=== PATIENT | male | born 1935 | race Caucasian/White ===

== ENCOUNTER 2016-05-06 21:21 | Inpatient (IN) | payer MEDICARE ==
--- NOTE | 2016-05-06 21:23 | ED Physician Chart ---
Chief Complaint/HPI - Patient Information Date Seen:: 05/06/16 Time Seen:: 21:22 Chief Complaint:: abdominal pain History of Present Illness:: 81-year-old male history of chronic pain using opiates, complains of acute, worsening, constant, severe, 10 out of 10 at worst, nonradiating, generalized abdominal pain 4 days. Has some associated slight nausea but no vomiting. Historian:: Patient, EMS Review:: Nurse's Note Reviewed, EMS run form Reviewed Review of Systems - Review of Systems Other: Complete system review otherwise unremarkable except as noted in HPI. Past Medical History - Past Medical History Past Medical History: HTN Family History: None Social History: Non Smoker, No Alcohol, No Drug Use, Single Surgical History: Appendectomy, Cholecystectomy Psychiatricy History: None Medication: Reviewed Family Medical History - Family Member Mother History Unknown: Yes Ethnicity: Non- Physical Exam - Physical Examination Other:: INITIAL VITAL SIGNS: Reviewed by me GENERAL: Alert and interactive. No acute distress HEAD: Head is normocephalic and atraumatic EYES: EOMI. . No scleral icterus. No conjunctival injection ENT: Moist mucous membranes. NECK: Supple. No masses. Full range of motion RESPIRATORY: No tachypnea. Clear breath sounds bilaterally. No wheezing, rales, or rhonchi CV: Regular rate and rhythm. No murmurs, rubs, or gallops ABDOMEN: Distended and generalized tenderness to palpation. No guarding. No rebound. No masses. EXTREMITIES: No deformity. No cyanosis. No edema. SKIN: Warm and dry. No obvious rashes. NEUROLOGIC: Alert and oriented. Face is symmetric. Speech is normal. Moves all extremities equally. Motor and sensory distally intact. Labs/Radiology/EKG Results - Radiology Results Results: CT abdomen and pelvis without contrast preliminary report per radiology Jejunal loops appear right-sided. Suspect small bowel rotation. There are mildly distended small bowel segments with air fluid levels. Although the terminal ileum is decompressed, no discrete transition point of insertion is suspected. Findings may represent ileus versus enteritis. Cholecystectomy. Suspect dilated cystic duct remnant. No evidence of acute pancreatitis. No urolithiasis or hydronephrosis. Diverticulosis without diverticulitis. Nonvisualized bodies Prostate seeding. Additional incidental findings include the density splenic lesion, relative atrophy of the right kidney, left adrenal hyperplasia, degenerative changes osseous structures with advanced arthritic changes of the hips and transitional lumbosacral right hemivertebrae. ED Septic Shock - . Is Septic Shock (SBP<90, OR Lactate>4 mmol\L) present?: No Reassessment (Disposition) - Reassessment Reassessment:: Patient has what appears to be large ileus. Most likely due to his opiate use. Gave Mayo and Nico here in the ER. Due to the intractable abdominal pain I discussed the case with the admitting physician. He'll admit the patient for further workup and treatment. Reassessment Condition:: Unchanged - Diagnosis Diagnosis:: Small bowel ileus Hypertension Chronic pain Chronic opioid use - Patient Disposition Discharge/Transfer:: Acute Care w/in this hosp Admitting Medical Physician:: Leland Saldaña Time:: 23:22 Condition at Disposition:: Stable ED Discharge Plan - Patient Disposition Admit/Discharge/Transfer: Acute Care w/in this hosp Instructions: Ileus
[2016-05-06] MEDS ORDERED: HYDROmorphone 1 mg/mL 1mL Syr IV ONE (21:25)
[2016-05-06] MEDS ORDERED: Sodium Chloride 0.9% 1,000 ML IV ONE (21:25)
[2016-05-06 21:54] LABS: % BASOPHILS 0.2 % (0.0-2.0); % EOSINOPHILS 0.2 % (0.0-5.0); % LYMPHOCYTES 11.7 % (20.0-50.0); % MONOCYTES 3.1 % (2.0-10.0); % NEUTROPHILS 84.8 % (40.0-80.0); HEMATOCRIT 44.8 % (39.0-49.0); HEMOGLOBIN 14.9 gm/dL (12.6-17.4); MEAN CELL VOLUME 93.3 fl (80-99); MEAN CORPUSCULAR HGB CONC 33.2 pg (28.0-36.0); MEAN PLATELET VOLUME 8.4 fl; NEUTROPHILE ABSOLUTE 7.1 Th/cmm (1.8-8.0); PLATELET COUNT 229 Th/cmm (150-400); RED CELL DISTRIBUTION WIDTH 11.9 % (11.5-20.0); WHITE BLOOD COUNT 8.4 Th/cmm (4.8-10.8)
[2016-05-06] MEDS ORDERED: HYDROmorphone 1 mg/mL 1mL Syr ONE (22:00)
[2016-05-06 22:06] LABS: ALB/GLOB RATIO 1.3 (1.0-1.8); ALKALINE PHOSPHATASE 55 U/L (34-104); AMYLASE SERUM 55 U/L (29-103); ANION GAP 15.2 (7.0-16.0); BILIRUBIN,TOTAL 1.4 mg/dL (0.3-1.0); BUN - UREA NITROGEN 19 mg/dL (7-25); BUN/CREATININE RATIO 15.8; CARBON DIOXIDE 22.9 mEq/L (21.0-31.0); CHLORIDE 101 mEq/L (98-107); CREATININE - SERUM 1.2 mg/dL (0.7-1.3); GLUCOSE 107 mg/dL (70-105); POTASSIUM SERUM 4.1 mEq/L (3.5-5.1); SGOT 19 U/L (13-39); SGPT/ALT 15 U/L (7-52); SODIUM SERUM 135 mEq/L (136-145)
[2016-05-06] MEDS ORDERED: Metoclopramide 5 mg/mL 2mL Vial IVP STA (23:10)
[2016-05-06] MEDS ORDERED: ERYTHROMYCIN 250 MG PO ONE ×2 (23:16→23:28)
[2016-05-06] MEDS ORDERED: Metoclopramide 5 mg/mL 2mL Vial ONE (23:28)
--- NOTE | 2016-05-06 23:34 | Admit Criteria Form ---
Admit Criteria Forms - Admit Criteria Diagnosis: ABDOMINAL PAIN Clinical Indications for Admission to Inpatient Care (Place 'X' for any and all applicable criteria): Admission is indicated for ANY ONE of the following(1)(2)(3)(4)(5): [X]I. Inpatient admission required rather than observation care (Also use Abdominal Pain: Observation Care, as appropriate) because of ANY ONE of the following: [X]a) Severe pain requiring acute inpatient management [X]b) Identification of etiology/finding that requires inpatient care (eg, aortic dissection, free air) [ ]c) Absent bowel sounds with complete ileus(6) [ ]d) Suspected toxic megacolon [ ]e) Severe electrolyte abnormalities requiring inpatient care [ ]f) High fever or infection requiring inpatient admission as indicated by ANY ONE of following(7)(8): [ ] i) Appropriate outpatient or observational care antimicrobial treatment unavailable, not effective, or not feasible [ ] ii) Documented bacteremia [ ] iii) Temperature > 104.9 degrees F (oral) [ ] iv) T >103.1 F (oral) or < 96.8 F(rectal) that does not respond to all emergency treatment measures [ ]g) Signs of intestinal obstruction [B] [ ]h) Hemodynamic instability [ ]i) IV fluid to replace significant ongoing losses (greater than 3 L/m2 per day) (12)(13) [ ]j) Percutaneous or open drainage (eg, abscess, biliary tract ) procedures [ ]k) Parenteral nutrition regimen that must be implemented on inpatient basis [ ]l) Other condition,treatment or monitoring requiring inpatient admission. [ ]II. Peritoneal signs present [ ]III. Surgery needed that cannot be performed on an ambulatory basis. [ ]IV. Evaluation requires patient to not eat or drink for extended period ( eg, more than 24 hours). [ ]V. Contraindications and/or Inappropriate clinical situations for Observational Care in patients with abdominal pain, when ANY ONE of the following is required: [ ]a) Thorough evaluation is required to prevent catastrophic events due to delays in diagnosing (e.g.Mesenteric ischemia) 1,3 [ ]b) Patient with severe pathology or with chronic symptoms unlikely to improve in the ED stay (3) [ ]. General contraindications and/or Inappropriate clinical situations for Observational Care in patients with abdominal pain, when ANY ONE of the following is required: [ ]a) Prediction of prolongation of LOS based on ANY ONE of the following may be considered as a contraindication for observational care 2, 3, 4, 5, 6, 7, 8, 9, 10, 11 [ ]i) Age > 65 yrs. [ ]ii) Patient arriving by ambulance [ ]iii) Patient with high acuity [ ]iv) Patient requiring vital sign monitoring [ ]v) Patient on IV medication [ ]b) Systolic blood pressures 180mmHg 3,12 [ ]c) Patient with altered mental status including delirium and other alteration of consciousness, (3) [ ]d) Patient whose discharge disposition will be to a fdc home or rehabilitation home should not be managed in Emergency Department Observation Unit. CMS rule requires 3 days hospital stay before such placement.3,13 [ ]e) Patient with failure to thrive due to broad array of etiologies 3,16,17 [ ]f) Inability to ambulate 3,14 Extended stay beyond goal length of stay may be needed for(2)(3): [ ]a) Persistent abdominal pain with suspected intra-abdominal process [ ]b) Diagnosed condition requiring continued stay (e.g., pancreatitis, complicated diverticulitis) [ ]c) Surgery (e.g., colectomy) The original [facility] content created by [employer] has been revised. The portions of the content which have been revised are identified through the use of italic text or in bold, and [facility] has neither reviewed nor approved the modified material.All other unmodified content is copyright [facility]. Please see references footnoted in the original [facility] edition 2016 Admit Criteria Met?: Yes
[2016-05-07] MEDS: D5-0.45NS 1,000 ML IV SCH (01:20)
[2016-05-07 04:44] VITALS: BP 150/84
[2016-05-07 08:25] LABS: URINE BILIRUBIN NEGATIVE (NEGATIVE); URINE BLOOD NEGATIVE (NEGATIVE); URINE COLOR YELLOW; URINE GLUCOSE (UA) NEGATIVE (NEGATIVE); URINE KETONE NEGATIVE (NEGATIVE); URINE PROTEIN TRACE mg/dL (NEGATIVE)
[2016-05-07 08:27] LABS: URINE BACTERIA NONE SEEN /hpf (NONE SEEN); URINE EPITHELIAL CELLS RARE /lpf (FEW); URINE RBC NONE SEEN /hpf (0-5); URINE WBC 0-2 /hpf (0-5)
[2016-05-07] MEDS: cloNIDine 0.1 mg/24 hr Tdm TD SCH (09:34)
[2016-05-07 09:46] LABS: % BASOPHILS 0.5 % (0.0-2.0); % EOSINOPHILS 0.6 % (0.0-5.0); % LYMPHOCYTES 18.5 % (20.0-50.0); % MONOCYTES 9.1 % (2.0-10.0); % NEUTROPHILS 71.3 % (40.0-80.0); MEAN CELL VOLUME 92.5 fl (80-99); MEAN CORPUSCULAR HEMOGLOBIN 31.3 pg (27.0-31.0); MEAN CORPUSCULAR HGB CONC 33.8 pg (28.0-36.0); MEAN PLATELET VOLUME 8.6 fl; NEUTROPHILE ABSOLUTE 5.8 Th/cmm (1.8-8.0); PLATELET COUNT 189 Th/cmm (150-400); RED BLOOD COUNT 3.94 Mil/cmm (3.80-5.80); RED CELL DISTRIBUTION WIDTH 12.1 % (11.5-20.0)
--- NOTE | 2016-05-07 09:57 | General Progress Note ---
Subjective - Review of Systems Service Date: 05/07/16 Events since last encounter: 4 day history of abdominal pain, with nausea no BM for [address] scan ? of SBO Plan: SBO series with gastrografftin PE: scars from lap milana 2 years ago, minimal generalized tenderness Objective - Results Result Diagrams: 05/06/16 21:41 05/06/16 21:41 Recent Labs: Laboratory Last Values WBC 8.4 Th/cmm (4.8-10.8) 05/06/16 21:41 RBC 4.80 Mil/cmm (3.80-5.80) 05/06/16 21:41 Hgb 14.9 gm/dL (12.6-17.4) 05/06/16 21:41 Hct 44.8 % (39.0-49.0) 05/06/16 21:41 MCV 93.3 fl (80-99) 05/06/16 21:41 MCH 31.0 pg (27.0-31.0) 05/06/16 21:41 MCHC Differential 33.2 pg (28.0-36.0) 05/06/16 21:41 RDW 11.9 % (11.5-20.0) 05/06/16 21:41 Plt Count 229 Th/cmm (150-400) 05/06/16 21:41 MPV 8.4 fl 05/06/16 21:41 Neutrophils % 84.8 % (40.0-80.0) H 05/06/16 21:41 Lymphocytes % 11.7 % (20.0-50.0) L 05/06/16 21:41 Monocytes % 3.1 % (2.0-10.0) 05/06/16 21:41 Eosinophils % 0.2 % (0.0-5.0) 05/06/16 21:41 Basophils % 0.2 % (0.0-2.0) 05/06/16 21:41 Sodium 135 mEq/L (136-145) L 05/06/16 21:41 Potassium 4.1 mEq/L (3.5-5.1) 05/06/16 21:41 Chloride 101 mEq/L (98-107) 05/06/16 21:41 Carbon Dioxide 22.9 mEq/L (21.0-31.0) 05/06/16 21:41 Anion Gap 15.2 (7.0-16.0) 05/06/16 21:41 BUN 19 mg/dL (7-25) 05/06/16 21:41 Creatinine 1.2 mg/dL (0.7-1.3) 05/06/16 21:41 Est GFR ( Amer) TNP 05/06/16 21:41 Est GFR (Non-Af Amer) TNP 05/06/16 21:41 BUN/Creatinine Ratio 15.8 05/06/16 21:41 Glucose 107 mg/dL (70-105) H 05/06/16 21:41 Whole Bld Lactic Acid 1.87 mmol/L (0.60-1.99) 05/06/16 21:41 Calcium 11.0 mg/dL (8.6-10.3) H 05/06/16 21:41 Total Bilirubin 1.4 mg/dL (0.3-1.0) H 05/06/16 21:41 AST 19 U/L (13-39) 05/06/16 21:41 ALT 15 U/L (7-52) 05/06/16 21:41 Alkaline Phosphatase 55 U/L (34-104) 05/06/16 21:41 Total Protein 7.9 gm/dL (6.0-8.3) 05/06/16 21:41 Albumin 4.5 gm/dL (4.2-5.5) 05/06/16 21:41 Globulin 3.4 gm/dL 05/06/16 21:41 Albumin/Globulin Ratio 1.3 (1.0-1.8) 05/06/16 21:41 Amylase 55 U/L (29-103) 05/06/16 21:41 Lipase 14 U/L (11-82) 05/06/16 21:41 Urine Source CLEAN C 05/07/16 07:30 Urine Color YELLOW 05/07/16 07:30 Urine Clarity SL. CLOUDY (CLEAR) 05/07/16 07:30 Urine pH 6.0 05/07/16 07:30 Ur Specific [place] 1.015 (1.005-1.030) 05/07/16 07:30 Urine Protein TRACE mg/dL (NEGATIVE) 05/07/16 07:30 Urine Glucose (UA) NEGATIVE mg/dL (NEGATIVE) 05/07/16 07:30 Urine Ketones NEGATIVE mg/dL (NEGATIVE) 05/07/16 07:30 Urine Blood NEGATIVE (NEGATIVE) 05/07/16 07:30 Urine Nitrate NEGATIVE (NEGATIVE) 05/07/16 07:30 Urine Bilirubin NEGATIVE (NEGATIVE) 05/07/16 07:30 Urine Urobilinogen 1.0 E.U./dL (0.2 - 1.0) 05/07/16 07:30 Ur Leukocyte Esterase NEGATIVE (NEGATIVE) 05/07/16 07:30 Urine RBC NONE SEEN /hpf (0-5) 05/07/16 07:30 Urine WBC 0-2 /hpf (0-5) 05/07/16 07:30 Ur Epithelial Cells RARE /lpf (FEW) 05/07/16 07:30 Urine Bacteria NONE SEEN /hpf (NONE SEEN) 05/07/16 07:30 - Physical Exam Vitals and I&O: Vital Signs Temp 97.3 F 05/07/16 08:06 Pulse 90 05/07/16 09:34 Resp 19 05/07/16 08:06 BP 140/80 05/07/16 09:34 Pulse Ox 94 05/07/16 08:06 Intake & Output 05/06/16 05/07/16 05/07/16 18:59 06:59 18:59 Intake Total 0 Balance 0 Intake: Oral 0 Other: # Voids 2 Active Medications: Current Medications Clonidine HCl (Haxxdaim-Oyt-1) 1 patch TD QTUE AMANDA Stop: 07/06/16 08:59 Last Admin: 05/07/16 09:34 Dose: 1 patch Dextrose/Sodium Chloride (D5-0.45ns) 1,000 mls @ 50 mls/hr IV .Q20H AMANDA Stop: 07/06/16 00:59 Last Admin: 05/07/16 01:20 Dose: 50 mls/hr Metronidazole (Flagyl) 500 mg in 100 mls @ 100 mls/hr IV Q8HR AMANDA Stop: 07/06/16 12:59 Ondansetron HCl (Zofran) 4 mg IV Q6H PRN PRN Reason: Nausea / Vomiting Stop: 07/06/16 00:49 Pantoprazole Sodium (Protonix) 40 mg IVP DAILY AMANDA Stop: 07/06/16 08:59 Last Admin: 02/28/17 09:34 Dose: 40 mg
[2016-05-07 09:58] LABS: HEMATOCRIT 36.4 % (39.0-49.0); HEMOGLOBIN 12.3 gm/dL (12.6-17.4)
[2016-05-07] MEDS ORDERED: Diatrizoate Meglumine/Diatri 30 mL Sol PO ONE (10:01)
--- NOTE | 2016-05-07 11:06 | History & Physical ---
CHIEF COMPLAINT: Abdominal pain. HISTORY OF PRESENT ILLNESS: This is a 81-year-old male who presents to [facility] ER for acute abdominal pain for the past 5 days this past Friday. He describes pain to be constant 10/10, nonradiating, generalized abdominal pain. He had some nausea and vomiting. He states that he has not had a bowel movement since this past Friday. PAST MEDICAL HISTORY: Has a previous history of appendectomy, cholecystectomy and hypertension. He also has a history of gastroesophageal reflux disease. CURRENT MEDICATIONS: Include esomeprazole, Bystolic, pantoprazole, omeprazole, amlodipine, sucralfate, lisinopril, ____, ____ and Movantik. LABORATORY DATA: His initial lab work in the ER, white count was normal at 8.4, hemoglobin 14.9, hematocrit 44.8 and platelets 229. Chem-7: Sodium 135, potassium 4, chloride 101, bicarbonate 23, BUN 19, creatinine 1.2 and glucose 107. Amylase was normal at 55. Lipase normal at 14. ALLERGIES: No known drug allergies. IMAGING STUDIES: While in the ER, a CT of the abdomen and pelvis was ordered, which revealed suspected small bowel irritation, mildly distended small bowel segments with air fluid levels, ileus versus enteritis, also presence of diverticulosis without diverticulitis. The patient was subsequently admitted for further evaluation and treatment. REVIEW OF SYSTEMS: Essentially normal with the exception of the above HPI and chief complaint. PHYSICAL EXAMINATION: VITAL SIGNS: Temperature 97.3, pulse 55, respirations 18 and blood pressure 147/65. GENERAL: This is a 81-year-old male, well developed, well nourished, appears stated age. HEENT: Normocephalic and atraumatic. Pupils are equal, round and reactive to light and accommodation. Extraocular muscles are intact. Ears: TMs intact. NECK: Supple. Good range of motion. No thyromegaly and no lymphadenopathy. CARDIOVASCULAR: Heart regular rate and rhythm. LUNGS: Clear to auscultation. ABDOMEN: Decreased bowel sounds noted. Generalized abdominal pain noted. EXTREMITIES: No clubbing, cyanosis or edema. Pedal pulses intact. NEUROLOGIC: Cranial nerves 2-12 grossly intact. No focal deficits noted. ASSESSMENT: 1. Abdominal pain. 2. Ileus versus enteritis. 3. Diverticulosis, rule out diverticulitis. 4. Hypertension. 5. Status post appendectomy. 6. Status post cholecystectomy. 7. Gastroesophageal reflux disease. PLAN: We will keep the patient n.p.o. The patient is on D5 half normal saline at 50 mL an hour. We will repeat CBC and CMP for this morning. We will order a GI consult with Dr. Espinoza and surgical consult with Dr. Rolle. We will continue the patient's home medications. [facility]# [id number]
--- NOTE | 2016-05-07 11:58 | Diagnostic Imaging Report ---
CT abdomen and pelvis without intravenous contrast Indication: Abdominal pain Comparison: None, Technique: Axial images were obtained from the lung bases to the bilateral proximal femurs without IV contrast. Coronal reconstructions were made. total DLP: [id number], [id number] FINDINGS: Atelectatic hyperventilate changes of the lung bases are noted. Assessment of the solid organs is limited due to lack of IV contrast. No evidence of focal hepatic lesions. The patient is status post cholecystectomy. Dilated cystic duct remnant is noted. A 1.5 cm low-density lesion of the medial spleen is noted. No focal pancreatic lesions. Pancreatic gland atrophy is noted. No focal adrenal lesions. Mild right renal atrophy is noted. No evidence of hydronephrosis or renal stones. Prostate gland brachytherapy seeds are noted. Minimal diverticulosis is noted without evidence of diverticulitis. The appendix is not visualized. Multiple moderately distended gas and fluid-filled loops of small bowel are noted. No free air or free fluid. Moderate degenerative changes of the spine are noted. Advanced degenerative changes of bilateral hip joints are noted. There is 2 mm anterolisthesis of L4 on L5 likely due to facet arthropathy. Transitional vertebral body anatomy is noted. IMPRESSION: Multiple moderately distended loops of small bowel, nonspecific, and may be due to inflammatory process, however, a partial small bowel obstruction cannot be excluded. Clinical correlation recommended Minimal diverticulosis without evidence of diverticulitis Prostate brachytherapy therapy seeds. 1.5 cm low-density left splenic lesion. Findings may represent a splenic cyst or other etiologies such as a hemangioma. Recommend correlation with old exams and short-term follow-up ultrasound or CT with IV contrast. Evidence of prior cholecystectomy with what appears to be dilated cystic remnant. Degenerative changes. Atherosclerotic vascular disease.
[2016-05-07 12:09] LABS: ALB/GLOB RATIO 1.3 (1.0-1.8); ALKALINE PHOSPHATASE 41 U/L (34-104); ANION GAP 8.3 (7.0-16.0); BILIRUBIN,TOTAL 0.9 mg/dL (0.3-1.0); BUN - UREA NITROGEN 18 mg/dL (7-25); BUN/CREATININE RATIO 13.8; CALCIUM SERUM 9.4 mg/dL (8.6-10.3); CARBON DIOXIDE 25.6 mEq/L (21.0-31.0); CHLORIDE 106 mEq/L (98-107); CREATININE - SERUM 1.3 mg/dL (0.7-1.3); GLUCOSE 97 mg/dL (70-105); POTASSIUM SERUM 3.9 mEq/L (3.5-5.1); SGOT 18 U/L (13-39); SGPT/ALT 13 U/L (7-52); SODIUM SERUM 136 mEq/L (136-145)
[2016-05-07] MEDS: Morphine Sulfate 2 mg/mL 1mL Syr IVP PRN ×3 (13:23→21:42)
[2016-05-07] MEDS: metroNIDAZOLE 500mg/NS 100mL 500 MG/100 ML BAG IV SCH ×2 (13:25→20:16)
--- NOTE | 2016-05-07 14:03 | Diagnostic Imaging Report ---
Small bowel follow-through History: Pain rule out obstruction Comparison: CT abdomen and pelvis on 04/21/2016 Technique/procedure: Sash Assembler view demonstrates joint gaseous filled loops of bowel. Cholecystectomy clips are noted. Oral contrast was administered and multiple static images were obtained. Ffip-yq-ooblzwyv fluid distended loops of small bowel are noted. Assessment for focal lesions is limited on this exam. There is transit of contrast throughout the large bowel seen at 3 hours. No evidence of small bowel obstruction. IMPRESSION: No evidence of small bowel obstruction.
[2016-05-07] MEDS: Levofloxacin 500mg/100mL 500 MG/100 ML BAG IV SCH (18:01)
[2016-05-08] MEDS: D5-0.45NS 1,000 ML IV SCH ×2 (01:50→23:18)
[2016-05-08] MEDS: Morphine Sulfate 2 mg/mL 1mL Syr IVP PRN ×5 (02:12→23:18)
[2016-05-08] MEDS: metroNIDAZOLE 500mg/NS 100mL 500 MG/100 ML BAG IV SCH ×3 (05:10→21:31)
[2016-05-08 06:17] LABS: % BASOPHILS 0.5 % (0.0-2.0); % EOSINOPHILS 0.4 % (0.0-5.0); % LYMPHOCYTES 18.6 % (20.0-50.0); % MONOCYTES 9.4 % (2.0-10.0); % NEUTROPHILS 71.1 % (40.0-80.0); HEMATOCRIT 37.9 % (39.0-49.0); HEMOGLOBIN 13.1 gm/dL (12.6-17.4); MEAN CELL VOLUME 92.2 fl (80-99); MEAN CORPUSCULAR HEMOGLOBIN 31.7 pg (27.0-31.0); MEAN CORPUSCULAR HGB CONC 34.4 pg (28.0-36.0); MEAN PLATELET VOLUME 8.7 fl; NEUTROPHILE ABSOLUTE 5.3 Th/cmm (1.8-8.0); PLATELET COUNT 182 Th/cmm (150-400); RED BLOOD COUNT 4.12 Mil/cmm (3.80-5.80); RED CELL DISTRIBUTION WIDTH 12.1 % (11.5-20.0); WHITE BLOOD COUNT 7.4 Th/cmm (4.8-10.8)
[2016-05-08 06:43] LABS: ALB/GLOB RATIO 1.3 (1.0-1.8); ALKALINE PHOSPHATASE 40 U/L (34-104); ANION GAP 9.6 (7.0-16.0); BILIRUBIN,TOTAL 0.7 mg/dL (0.3-1.0); BUN - UREA NITROGEN 18 mg/dL (7-25); BUN/CREATININE RATIO 12.9; CALCIUM SERUM 9.2 mg/dL (8.6-10.3); CHLORIDE 107 mEq/L (98-107); CREATININE - SERUM 1.4 mg/dL (0.7-1.3); GLUCOSE 99 mg/dL (70-105); POTASSIUM SERUM 3.6 mEq/L (3.5-5.1); SGOT 18 U/L (13-39); SGPT/ALT 13 U/L (7-52); SODIUM SERUM 140 mEq/L (136-145)
--- NOTE | 2016-05-08 10:56 | Consultation ---
REASON FOR CONSULTATION: Abdominal pain. HISTORY OF PRESENT ILLNESS: This consult was obtained through the courtesy of Dr. Saldaña for this 81-year-old with history of hypertension, presented to the hospital because of abdominal pain. Apparently, the patient started having severe abdominal pain over few days, then got worse over the last day, became 10/10, accompanied by nausea and vomiting, so his neighbor brought him to the hospital. He has lost about 10-15 pounds over the last 3-6 months. No previous diarrhea or constipation. He now started having bowel movement after the contrast. PAST MEDICAL HISTORY: Hypertension, prostatic cancer. PAST SURGICAL HISTORY: Cholecystectomy, appendectomy. SOCIAL HISTORY: Ex-smoker, quit 1-1/2 years ago, nonalcoholic, non IV drug abuser. FAMILY HISTORY: Noncontributory. ALLERGIES: No known drug allergies. REVIEW OF SYSTEMS: Has weight loss as stated above 10-15 pounds over 3-6 months. No nausea, vomiting, diarrhea, constipation or bleeding. PHYSICAL EXAMINATION: GENERAL: The patient is awake, oriented to self, place and time, in mild distress. VITAL SIGNS: Blood pressure is 140/75, heart rate 60, respiratory rate 18, temperature is 97.9. HEAD AND NECK: Pupils reactive to light and accommodation. Extraocular muscles intact. Sclerae are anicteric. Conjunctivae not pale. Oral cavity, no lesion. NECK: Supple. No jugular venous distention. No carotid bruit. No lymph node. CHEST: Good respiratory movements. LUNGS: Clear to auscultation. CARDIOVASCULAR SYSTEM: Regular rate and rhythm. No murmur or gallop. ABDOMEN: Soft. Positive bowel sounds. Positive left lower quadrant tenderness, but also some diffuse tenderness. EXTREMITIES: No edema. CENTRAL NERVOUS SYSTEM: Grossly nonfocal. LABORATORY DATA: H and H of 12.3 and 36.4, white count is normal. CAT scan showed some dilated loops of bowel. IMPRESSION: A 81-year-old with abdominal pain, nausea and vomiting. ASSESSMENT AND PLAN: Abdominal pain, nausea and vomiting. This picture seems to be related to diverticulosis or enteritis. At this time, x-rays have been negative for small-bowel obstruction. The patient is already on Flagyl. We will add Levaquin. We will start on full liquid diet. We will recheck labs in the morning. If improving, advance diet. If not, might consider EGD and colonoscopy. On the other hand, the patient had a colonoscopy a year and a few months ago. Other medical problems such as hypertension are as per Dr. Saldaña. Thank you, Dr. Saldaña, for allowing me to participate in the care of the patient. If you have any further questions, please let me know. JOB# [id number]
--- NOTE | 2016-05-08 11:24 | General Progress Note ---
Subjective - Review of Systems Service Date: 05/08/16 Events since last encounter: SBO series no obstruction had BMS start liquids po Objective - Results Result Diagrams: 05/08/16 05:31 05/08/16 05:31 Recent Labs: Laboratory Last Values WBC 7.4 Th/cmm (4.8-10.8) 05/08/16 05:31 RBC 4.12 Mil/cmm (3.80-5.80) 05/08/16 05:31 Hgb 13.1 gm/dL (12.6-17.4) 05/08/16 05:31 Hct 37.9 % (39.0-49.0) L 05/08/16 05:31 MCV 92.2 fl (80-99) 05/08/16 05:31 MCH 31.7 pg (27.0-31.0) H 05/08/16 05:31 MCHC Differential 34.4 pg (28.0-36.0) 05/08/16 05:31 RDW 12.1 % (11.5-20.0) 05/08/16 05:31 Plt Count 182 Th/cmm (150-400) 05/08/16 05:31 MPV 8.7 fl 05/08/16 05:31 Neutrophils % 71.1 % (40.0-80.0) 05/08/16 05:31 Lymphocytes % 18.6 % (20.0-50.0) L 05/08/16 05:31 Monocytes % 9.4 % (2.0-10.0) 05/08/16 05:31 Eosinophils % 0.4 % (0.0-5.0) 05/08/16 05:31 Basophils % 0.5 % (0.0-2.0) 05/08/16 05:31 Sodium 140 mEq/L (136-145) 05/08/16 05:31 Potassium 3.6 mEq/L (3.5-5.1) 05/08/16 05:31 Chloride 107 mEq/L (98-107) 05/08/16 05:31 Carbon Dioxide 27.0 mEq/L (21.0-31.0) 05/08/16 05:31 Anion Gap 9.6 (7.0-16.0) 05/08/16 05:31 BUN 18 mg/dL (7-25) 05/08/16 05:31 Creatinine 1.4 mg/dL (0.7-1.3) H 05/08/16 05:31 Est GFR ( Amer) TNP 05/08/16 05:31 Est GFR (Non-Af Amer) TNP 05/08/16 05:31 BUN/Creatinine Ratio 12.9 05/08/16 05:31 Glucose 99 mg/dL (70-105) 05/08/16 05:31 Whole Bld Lactic Acid 1.87 mmol/L (0.60-1.99) 05/06/16 21:41 Calcium 9.2 mg/dL (8.6-10.3) 05/08/16 05:31 Total Bilirubin 0.7 mg/dL (0.3-1.0) 05/08/16 05:31 AST 18 U/L (13-39) 05/08/16 05:31 ALT 13 U/L (7-52) 05/08/16 05:31 Alkaline Phosphatase 40 U/L (34-104) 05/08/16 05:31 Total Protein 6.3 gm/dL (6.0-8.3) 05/08/16 05:31 Albumin 3.5 gm/dL (4.2-5.5) L 05/08/16 05:31 Globulin 2.8 gm/dL 05/08/16 05:31 Albumin/Globulin Ratio 1.3 (1.0-1.8) 05/08/16 05:31 Amylase 55 U/L (29-103) 05/06/16 21:41 Lipase 14 U/L (11-82) 05/06/16 21:41 Urine Source CLEAN C 05/07/16 07:30 Urine Color YELLOW 05/07/16 07:30 Urine Clarity SL. CLOUDY (CLEAR) 05/07/16 07:30 Urine pH 6.0 05/07/16 07:30 Ur Specific [place] 1.015 (1.005-1.030) 05/07/16 07:30 Urine Protein TRACE mg/dL (NEGATIVE) 05/07/16 07:30 Urine Glucose (UA) NEGATIVE mg/dL (NEGATIVE) 05/07/16 07:30 Urine Ketones NEGATIVE mg/dL (NEGATIVE) 05/07/16 07:30 Urine Blood NEGATIVE (NEGATIVE) 05/07/16 07:30 Urine Nitrate NEGATIVE (NEGATIVE) 05/07/16 07:30 Urine Bilirubin NEGATIVE (NEGATIVE) 05/07/16 07:30 Urine Urobilinogen 1.0 E.U./dL (0.2 - 1.0) 05/07/16 07:30 Ur Leukocyte Esterase NEGATIVE (NEGATIVE) 05/07/16 07:30 Urine RBC NONE SEEN /hpf (0-5) 05/07/16 07:30 Urine WBC 0-2 /hpf (0-5) 05/07/16 07:30 Ur Epithelial Cells RARE /lpf (FEW) 05/07/16 07:30 Urine Bacteria NONE SEEN /hpf (NONE SEEN) 05/07/16 07:30 - Physical Exam Vitals and I&O: Vital Signs Temp 97.4 F 05/08/16 07:49 Pulse 51 05/08/16 07:49 Resp 18 05/08/16 08:00 BP 136/63 05/08/16 07:49 Pulse Ox 97 05/08/16 07:49 Intake & Output 05/07/16 05/08/16 05/08/16 18:59 06:59 18:59 Intake Total 100 1100 Balance 100 1100 Intake: Intake, IV Amount 100 1100 D5-0.45NS 1,000 ml @ 50 1000 mls/hr IV .Q20H [facility] Rx#: [id number] metroNIDAZOLE 500mg/NS 100 100 100mL 500 mg In 100 ml @ 100 mls/hr IV Q8HR [facility] Rx #:[id number] Other: # Voids 2 Active Medications: Current Medications Clonidine HCl (Ilrsywkj-Owr-8) 1 patch TD QTUE [facility] Stop: 07/06/16 08:59 Last Admin: 05/07/16 09:34 Dose: 1 patch Diphenhydramine HCl (Benadryl 50 Mg/Ml) 25 mg IVP Q6HR PRN PRN Reason: itching Stop: 07/06/16 19:40 Last Admin: 05/07/16 20:17 Dose: 25 mg Duloxetine HCl (Cymbalta) 30 mg PO DAILY AMANDA PRN Reason: Protocol Stop: 07/07/16 08:59 Enalaprilat (Vasotec) 1.25 mg IVP Q6HR [facility] Stop: 07/06/16 17:59 Last Admin: 05/08/16 06:37 Dose: 1.25 mg Dextrose/Sodium Chloride (D5-0.45ns) 1,000 mls @ 50 mls/hr IV .Q20H [facility] Stop: 07/06/16 00:59 Last Admin: 05/08/16 01:50 Dose: 50 mls/hr Metronidazole (Flagyl) 500 mg in 100 mls @ 100 mls/hr IV Q8HR [facility] Stop: 07/06/16 12:59 Last Admin: 05/08/16 05:10 Dose: 100 mls/hr Levofloxacin (Levaquin Pb) 500 mg in 100 mls @ 100 mls/hr IV Q24HR [facility] Stop: 07/06/16 17:59 Last Admin: 05/07/16 18:01 Dose: 100 mls/hr Morphine Sulfate (Morphine) 2 mg IVP Q4HR PRN PRN Reason: Pain (Severe) Stop: 07/06/16 12:11 Last Admin: 05/08/16 10:54 Dose: 2 mg Ondansetron HCl (Zofran) 4 mg IV Q6H PRN PRN Reason: Nausea / Vomiting Stop: 07/06/16 00:49 Last Admin: 05/07/16 13:35 Dose: 4 mg Pantoprazole Sodium (Protonix) 40 mg IVP DAILY [facility] Stop: 07/06/16 08:59 Last Admin: 05/08/16 08:28 Dose: 40 mg
--- NOTE | 2016-05-08 13:12 | Consultation ---
REFERRING PHYSICIAN: Dr. Saldaña. REASON FOR CONSULTATION: Question of small bowel obstruction. Thank you for referring this patient to me. HISTORY OF PRESENT ILLNESS: This is a 81-year-old male who claims he has been having abdominal pain for 4 days with no bowel movement. Had nausea, but no vomiting. CT scan of the abdomen showed possible small bowel obstruction. PAST MEDICAL HISTORY: Laparoscopic cholecystectomy 2 years ago. Otherwise, the patient apparently has been in fair health. LABORATORY STUDIES: Within normal limits. PHYSICAL EXAMINATION: Scar from previous laparoscopic cholecystectomy. Tenderness is minimal. No mass is noted. PLAN: Small bowel series been ordered. We will follow with you. JOB# [id number]
[2016-05-08] MEDS ORDERED: Influenza Vaccine 0.5 mL Syr IM ONE (17:00)
[2016-05-08] MEDS: Levofloxacin 500mg/100mL 500 MG/100 ML BAG IV SCH (17:24)
[2016-05-09] MEDS: metroNIDAZOLE 500mg/NS 100mL 500 MG/100 ML BAG IV SCH ×2 (05:43→13:00)
[2016-05-09] MEDS: Morphine Sulfate 2 mg/mL 1mL Syr IVP PRN (05:45)
[2016-05-09] MEDS: Hydrocodone/APAP 5mg/325mg Tab PO PRN (09:28)
--- NOTE | 2016-05-09 11:01 | Diagnostic Imaging Report ---
KUB abdominal film (portable) HISTORY: Pain The exam demonstrates residual contrast within nondilated descending, sigmoid: And within the rectal region. Bowel gas pattern otherwise nonspecific with nondilated small and large bowel. Surgical clips are seen in the right upper quadrant of the abdomen. Radiation prostate seeds noted. Degenerative changes seen throughout the spine. 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 IMPRESSION: 1. Residual contrast within the distal large bowel and in the rectal region with an otherwise nonspecific bowel gas pattern. 2. 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
[2016-05-09] MEDS: Morphine Sulfate 4 mg/mL 1mL Syr IVP PRN ×3 (11:32→20:30)
--- NOTE | 2016-05-09 14:04 | General Progress Note ---
Subjective - Review of Systems Service Date: 05/09/26 Events since last encounter: labs ok still complaining of abdominal pain CT scan ordered Objective - Results Result Diagrams: 05/08/16 05:31 05/09/16 11:00 Recent Labs: Laboratory Last Values WBC 7.4 Th/cmm (4.8-10.8) 05/08/16 05:31 RBC 4.12 Mil/cmm (3.80-5.80) 05/08/16 05:31 Hgb 13.1 gm/dL (12.6-17.4) 05/08/16 05:31 Hct 37.9 % (39.0-49.0) L 05/08/16 05:31 MCV 92.2 fl (80-99) 05/08/16 05:31 MCH 31.7 pg (27.0-31.0) H 05/08/16 05:31 MCHC Differential 34.4 pg (28.0-36.0) 05/08/16 05:31 RDW 12.1 % (11.5-20.0) 05/08/16 05:31 Plt Count 182 Th/cmm (150-400) 05/08/16 05:31 MPV 8.7 fl 05/08/16 05:31 Neutrophils % 71.1 % (40.0-80.0) 05/08/16 05:31 Lymphocytes % 18.6 % (20.0-50.0) L 05/08/16 05:31 Monocytes % 9.4 % (2.0-10.0) 05/08/16 05:31 Eosinophils % 0.4 % (0.0-5.0) 05/08/16 05:31 Basophils % 0.5 % (0.0-2.0) 05/08/16 05:31 Sodium 140 mEq/L (136-145) 05/08/16 05:31 Potassium 3.6 mEq/L (3.5-5.1) 05/08/16 05:31 Chloride 107 mEq/L (98-107) 05/08/16 05:31 Carbon Dioxide 27.0 mEq/L (21.0-31.0) 05/08/16 05:31 Anion Gap 9.6 (7.0-16.0) 05/08/16 05:31 BUN 18 mg/dL (7-25) 05/08/16 05:31 Creatinine 1.3 mg/dL (0.7-1.3) 05/09/16 11:00 Est GFR ( Amer) TNP 05/08/16 05:31 Est GFR (Non-Af Amer) TNP 05/08/16 05:31 BUN/Creatinine Ratio 12.9 05/08/16 05:31 Glucose 99 mg/dL (70-105) 05/08/16 05:31 Whole Bld Lactic Acid 0.56 mmol/L (0.60-1.99) L 05/09/16 11:00 Calcium 9.2 mg/dL (8.6-10.3) 05/08/16 05:31 Total Bilirubin 0.7 mg/dL (0.3-1.0) 05/08/16 05:31 AST 18 U/L (13-39) 05/08/16 05:31 ALT 13 U/L (7-52) 05/08/16 05:31 Alkaline Phosphatase 40 U/L (34-104) 05/08/16 05:31 Total Protein 6.3 gm/dL (6.0-8.3) 05/08/16 05:31 Albumin 3.5 gm/dL (4.2-5.5) L 05/08/16 05:31 Globulin 2.8 gm/dL 05/08/16 05:31 Albumin/Globulin Ratio 1.3 (1.0-1.8) 05/08/16 05:31 Amylase 55 U/L (29-103) 05/06/16 21:41 Lipase 14 U/L (11-82) 05/06/16 21:41 Urine Source CLEAN C 05/07/16 07:30 Urine Color YELLOW 05/07/16 07:30 Urine Clarity SL. CLOUDY (CLEAR) 05/07/16 07:30 Urine pH 6.0 05/07/16 07:30 Ur Specific [place] 1.015 (1.005-1.030) 05/07/16 07:30 Urine Protein TRACE mg/dL (NEGATIVE) 05/07/16 07:30 Urine Glucose (UA) NEGATIVE mg/dL (NEGATIVE) 05/07/16 07:30 Urine Ketones NEGATIVE mg/dL (NEGATIVE) 05/07/16 07:30 Urine Blood NEGATIVE (NEGATIVE) 05/07/16 07:30 Urine Nitrate NEGATIVE (NEGATIVE) 05/07/16 07:30 Urine Bilirubin NEGATIVE (NEGATIVE) 05/07/16 07:30 Urine Urobilinogen 1.0 E.U./dL (0.2 - 1.0) 05/07/16 07:30 Ur Leukocyte Esterase NEGATIVE (NEGATIVE) 05/07/16 07:30 Urine RBC NONE SEEN /hpf (0-5) 05/07/16 07:30 Urine WBC 0-2 /hpf (0-5) 05/07/16 07:30 Ur Epithelial Cells RARE /lpf (FEW) 05/07/16 07:30 Urine Bacteria NONE SEEN /hpf (NONE SEEN) 05/07/16 07:30 - Physical Exam Vitals and I&O: Vital Signs Temp 97.9 F 05/09/16 11:50 Pulse 61 05/09/16 12:35 Resp 18 05/09/16 11:50 BP 154/75 05/09/16 12:35 Pulse Ox 95 05/09/16 11:50 Intake & Output 05/08/16 05/09/16 05/09/16 18:59 06:59 18:59 Intake Total 600 1400 Output Total 800 Balance 600 600 Intake: Intake, IV Amount 100 1200 D5-0.45NS 1,000 ml @ 50 1000 mls/hr IV .Q20H [facility] Rx#: [id number] metroNIDAZOLE 500mg/NS 100 200 100mL 500 mg In 100 ml @ 100 mls/hr IV Q8HR [facility] Rx #:[id number] Oral 500 200 Output: Urine 800 Other: # Voids 3 # Bowel Movements 1 0 Stool Characteristics Formed Brown Active Medications: Current Medications Acetaminophen/Hydrocodone Bitart ([place] 5mg/325mg) 1 tab PO Q6H PRN PRN Reason: Abdominal Pain Stop: 07/08/16 08:20 Last Admin: 05/09/16 09:28 Dose: 1 tab Amlodipine Besylate (Norvasc) 5 mg PO DAILY [facility] Stop: 07/08/16 08:59 Last Admin: 05/09/16 09:28 Dose: 5 mg Clonidine HCl (Klmjszjc-Gre-4) 1 patch TD QTUE [facility] Stop: 07/06/16 08:59 Last Admin: 05/07/16 09:34 Dose: 1 patch Diphenhydramine HCl (Benadryl 50 Mg/Ml) 25 mg IVP Q6HR PRN PRN Reason: itching Stop: 07/06/16 19:40 Last Admin: 05/07/16 20:17 Dose: 25 mg Duloxetine HCl (Cymbalta) 30 mg PO DAILY AMANDA PRN Reason: Protocol Stop: 07/07/16 08:59 Last Admin: 05/09/16 09:28 Dose: 30 mg Enalaprilat (Vasotec) 1.25 mg IVP Q6HR [facility] Stop: 07/06/16 17:59 Last Admin: 05/09/16 11:35 Dose: 1.25 mg Dextrose/Sodium Chloride (D5-0.45ns) 1,000 mls @ 50 mls/hr IV .Q20H [facility] Stop: 07/06/16 00:59 Last Admin: 05/08/16 23:18 Dose: 50 mls/hr Metronidazole (Flagyl) 500 mg in 100 mls @ 100 mls/hr IV Q8HR [facility] Stop: 07/06/16 12:59 Last Admin: 05/09/16 13:00 Dose: 100 mls/hr Levofloxacin (Levaquin Pb) 500 mg in 100 mls @ 100 mls/hr IV Q24HR [facility] Stop: 07/06/16 17:59 Last Admin: 05/08/16 17:24 Dose: 100 mls/hr Lisinopril (Zestril) 10 mg PO DAILY [facility] Stop: 07/08/16 08:59 Last Admin: 05/09/16 09:27 Dose: 10 mg Morphine Sulfate (Morphine) 4 mg IVP Q4H PRN PRN Reason: Abdominal Pain Stop: 07/08/16 08:13 Last Admin: 05/09/16 11:32 Dose: 4 mg Ondansetron HCl (Zofran) 4 mg IV Q6H PRN PRN Reason: Nausea / Vomiting Stop: 07/06/16 00:49 Last Admin: 05/07/16 13:35 Dose: 4 mg Pantoprazole Sodium (Protonix) 40 mg IVP DAILY [facility] Stop: 07/06/16 08:59 Last Admin: 05/09/16 09:27 Dose: 40 mg
[2016-05-09] MEDS: Levofloxacin 500mg/100mL 500 MG/100 ML BAG IV SCH (17:58)
[2016-05-09] MEDS: D5-0.45NS 1,000 ML IV SCH (22:11)
[2016-05-10] MEDS: Morphine Sulfate 4 mg/mL 1mL Syr IVP PRN ×5 (00:48→22:49)
[2016-05-10] MEDS: metroNIDAZOLE 500mg/NS 100mL 500 MG/100 ML BAG IV SCH ×3 (03:03→21:04)
[2016-05-10 05:51] LABS: % EOSINOPHILS 1.2 % (0.0-5.0); % LYMPHOCYTES 21.5 % (20.0-50.0); % MONOCYTES 8.8 % (2.0-10.0); % NEUTROPHILS 68.5 % (40.0-80.0); HEMATOCRIT 38.4 % (39.0-49.0); HEMOGLOBIN 12.8 gm/dL (12.6-17.4); MEAN CELL VOLUME 93.7 fl (80-99); MEAN CORPUSCULAR HEMOGLOBIN 31.2 pg (27.0-31.0); MEAN CORPUSCULAR HGB CONC 33.3 pg (28.0-36.0); MEAN PLATELET VOLUME 8.3 fl; NEUTROPHILE ABSOLUTE 4.9 Th/cmm (1.8-8.0); PLATELET COUNT 173 Th/cmm (150-400); WHITE BLOOD COUNT 7.1 Th/cmm (4.8-10.8)
[2016-05-10 05:59] LABS: ALB/GLOB RATIO 1.3 (1.0-1.8); ALKALINE PHOSPHATASE 36 U/L (34-104); ANION GAP 9.8 (7.0-16.0); BILIRUBIN,TOTAL 0.7 mg/dL (0.3-1.0); BUN - UREA NITROGEN 14 mg/dL (7-25); BUN/CREATININE RATIO 10.8; CARBON DIOXIDE 26.5 mEq/L (21.0-31.0); CHLORIDE 107 mEq/L (98-107); CREATININE - SERUM 1.3 mg/dL (0.7-1.3); GLUCOSE 98 mg/dL (70-105); POTASSIUM SERUM 4.3 mEq/L (3.5-5.1); SGOT 15 U/L (13-39); SGPT/ALT 13 U/L (7-52); SODIUM SERUM 139 mEq/L (136-145)
[2016-05-10] MEDS: D5-0.45NS 1,000 ML IV SCH (16:02)
[2016-05-10] MEDS: Levofloxacin 500mg/100mL 500 MG/100 ML BAG IV SCH (17:25)
[2016-05-11] MEDS: Morphine Sulfate 4 mg/mL 1mL Syr IVP PRN ×4 (04:46→18:29)
[2016-05-11] MEDS: metroNIDAZOLE 500mg/NS 100mL 500 MG/100 ML BAG IV SCH ×2 (04:50→13:06)
[2016-05-11] MEDS ORDERED: D5-0.45NS 1,000 ML IV SCH (06:30)
[2016-05-11] MEDS ORDERED: Magnesium Citrate 1.75 GM/300 mL Bottle PO ONE (13:50)
[2016-05-11] MEDS: Levofloxacin 500mg/100mL 500 MG/100 ML BAG IV SCH (17:40)
[2016-05-12] MEDS: Morphine Sulfate 4 mg/mL 1mL Syr IVP PRN ×5 (02:08→20:16)
[2016-05-12 05:42] LABS: ANION GAP 7.4 (7.0-16.0); BUN - UREA NITROGEN 11 mg/dL (7-25); BUN/CREATININE RATIO 9.2; CALCIUM SERUM 8.7 mg/dL (8.6-10.3); CARBON DIOXIDE 27.6 mEq/L (21.0-31.0); CHLORIDE 106 mEq/L (98-107); CREATININE - SERUM 1.2 mg/dL (0.7-1.3); GLUCOSE 112 mg/dL (70-105); SODIUM SERUM 137 mEq/L (136-145)
[2016-05-12] MEDS: POLYETHYLENE GLYCOL 3350 17 GM PACK PO SCH (08:26)
[2016-05-12] MEDS: D5-0.45NS 1,000 ML IV SCH ×2 (08:30→20:09)
[2016-05-12] MEDS: metroNIDAZOLE 500mg/NS 100mL 500 MG/100 ML BAG IV SCH ×2 (12:36→20:20)
[2016-05-12] MEDS: Levofloxacin 500mg/100mL 500 MG/100 ML BAG IV SCH (17:12)
[2016-05-13] MEDS: Morphine Sulfate 4 mg/mL 1mL Syr IVP PRN ×3 (00:08→09:04)
[2016-05-13] MEDS: Hydrocodone/APAP 5mg/325mg Tab PO PRN (02:55)
[2016-05-13] MEDS ORDERED: IOHEXOL 300MG/ML 50 ML VIAL PO ONE (06:00)
[2016-05-13] MEDS ORDERED: IOHEXOL 350mg/mL 100mL Bottle IVP ONE (06:00)
[2016-05-13 06:43] LABS: ALB/GLOB RATIO 1.2 (1.0-1.8); ALKALINE PHOSPHATASE 30 U/L (34-104); ANION GAP 7.7 (7.0-16.0); BILIRUBIN,TOTAL 0.6 mg/dL (0.3-1.0); BUN - UREA NITROGEN 10 mg/dL (7-25); BUN/CREATININE RATIO 9.1; CALCIUM SERUM 8.8 mg/dL (8.6-10.3); CHLORIDE 106 mEq/L (98-107); CREATININE - SERUM 1.1 mg/dL (0.7-1.3); GLUCOSE 103 mg/dL (70-105); POTASSIUM SERUM 3.7 mEq/L (3.5-5.1); SGOT 16 U/L (13-39); SGPT/ALT 14 U/L (7-52); SODIUM SERUM 138 mEq/L (136-145)
[2016-05-13] MEDS: POLYETHYLENE GLYCOL 3350 17 GM PACK PO SCH (09:02)
[2016-05-13] MEDS: D5-0.45NS w/20 mEq KCL 1,000 ML IV SCH ×2 (09:04→22:39)
[2016-05-13] MEDS: HYDROmorphone 1 mg/mL 1mL Syr IVP PRN ×3 (13:16→22:04)
--- NOTE | 2016-05-13 15:58 | Diagnostic Imaging Report ---
CT angiogram of the abdomen with intravenous contrast (CTA) HISTORY: Pain, mesenteric ischemia Total DLP equals 431 CTDI equals 45.0 Following administration of intravenous contrast, axial sections were obtained from the diaphragm down to the pubic symphysis during the arterial phase following injection of contrast. The exam demonstrates extensive multifocal calcified atherosclerotic plaque throughout the abdominal aorta. A small focus of calcified atherosclerotic plaque is noted adjacent to the origin of the celiac artery. There is normal opacification of the superior mesenteric artery. No significant narrowing involve the renal arteries. More pronounced multifocal plaque is seen below the level of the renal arteries. 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 No significant bowel dilatation. No evidence of bowel wall thickening. Specifically, no radiographic evidence of mesenteric ischemia. The liver exhibits a homogeneous parenchyma. No focal lesions. 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 No focal amenities seen in the region of the pancreas. No focal renal lesions. The exam of the pelvis demonstrates findings consistent with radiation seeds in the region of the prostate. No other abnormal masses or abnormal fluid collections. Marked degenerative changes noted about the hips and throughout the lumbar spine. IMPRESSION: 1. Multifocal atherosclerotic vascular disease. Patency of the superior mesenteric artery with no other radiographic evidence of mesenteric ischemia. No bowel dilatation or bowel wall thickening. 2. Complete occlusion of the right common iliac artery
[2016-05-13] MEDS: metroNIDAZOLE 500mg/NS 100mL 500 MG/100 ML BAG IV SCH (20:54)
[2016-05-14] MEDS: HYDROmorphone 1 mg/mL 1mL Syr IVP PRN ×6 (02:03→22:22)
[2016-05-14] MEDS: metroNIDAZOLE 500mg/NS 100mL 500 MG/100 ML BAG IV SCH ×2 (05:29→22:27)
[2016-05-14] MEDS: cloNIDine 0.1 mg/24 hr Tdm TD SCH (09:15)
--- NOTE | 2016-05-14 11:21 | General Progress Note ---
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 - patient has been having pain of this leg and uses walker wants to proceed with surgery after explanation of angiogram findings were disclosed superior mesenteric artery is patent, no indication of vascular deficit to explain his abdominal pain wants diagnostic laparoscopy also message left with Jessica who has POA Objective - Results Result Diagrams: 05/10/16 05:28 05/13/16 05:30 Recent Labs: Laboratory Last Values WBC 7.1 Th/cmm (4.8-10.8) 05/10/16 05:28 RBC 4.10 Mil/cmm (3.80-5.80) 05/10/16 05:28 Hgb 12.8 gm/dL (12.6-17.4) 05/10/16 05:28 Hct 38.4 % (39.0-49.0) L 05/10/16 05:28 MCV 93.7 fl (80-99) 05/10/16 05:28 MCH 31.2 pg (27.0-31.0) H 05/10/16 05:28 MCHC Differential 33.3 pg (28.0-36.0) 05/10/16 05:28 RDW 12.0 % (11.5-20.0) 05/10/16 05:28 Plt Count 173 Th/cmm (150-400) 05/10/16 05:28 MPV 8.3 fl 05/10/16 05:28 Neutrophils % 68.5 % (40.0-80.0) 05/10/16 05:28 Lymphocytes % 21.5 % (20.0-50.0) 05/10/16 05:28 Monocytes % 8.8 % (2.0-10.0) 05/10/16 05:28 Eosinophils % 1.2 % (0.0-5.0) 05/10/16 05:28 Basophils % 0.0 % (0.0-2.0) 05/10/16 05:28 Sodium 138 mEq/L (136-145) 05/13/16 05:30 Potassium 3.7 mEq/L (3.5-5.1) 05/13/16 05:30 Chloride 106 mEq/L (98-107) 05/13/16 05:30 Carbon Dioxide 28.0 mEq/L (21.0-31.0) 05/13/16 05:30 Anion Gap 7.7 (7.0-16.0) 05/13/16 05:30 BUN 10 mg/dL (7-25) 05/13/16 05:30 Creatinine 1.1 mg/dL (0.7-1.3) 05/13/16 05:30 Est GFR ( Amer) TNP 05/13/16 05:30 Est GFR (Non-Af Amer) TNP 05/13/16 05:30 BUN/Creatinine Ratio 9.1 05/13/16 05:30 Glucose 103 mg/dL (70-105) 05/13/16 05:30 Whole Bld Lactic Acid 0.56 mmol/L (0.60-1.99) L 05/09/16 11:00 Calcium 8.8 mg/dL (8.6-10.3) 05/13/16 05:30 Total Bilirubin 0.6 mg/dL (0.3-1.0) 05/13/16 05:30 AST 16 U/L (13-39) 05/13/16 05:30 ALT 14 U/L (7-52) 05/13/16 05:30 Alkaline Phosphatase 30 U/L (34-104) L 05/13/16 05:30 Total Protein 5.9 gm/dL (6.0-8.3) L 05/13/16 05:30 Albumin 3.2 gm/dL (4.2-5.5) L 05/13/16 05:30 Globulin 2.7 gm/dL 05/13/16 05:30 Albumin/Globulin Ratio 1.2 (1.0-1.8) 05/13/16 05:30 Amylase 55 U/L (29-103) 05/06/16 21:41 Lipase 14 U/L (11-82) 05/06/16 21:41 Urine Source CLEAN C 05/07/16 07:30 Urine Color YELLOW 05/07/16 07:30 Urine Clarity SL. CLOUDY (CLEAR) 05/07/16 07:30 Urine pH 6.0 05/07/16 07:30 Ur Specific [place] 1.015 (1.005-1.030) 05/07/16 07:30 Urine Protein TRACE mg/dL (NEGATIVE) 05/07/16 07:30 Urine Glucose (UA) NEGATIVE mg/dL (NEGATIVE) 05/07/16 07:30 Urine Ketones NEGATIVE mg/dL (NEGATIVE) 05/07/16 07:30 Urine Blood NEGATIVE (NEGATIVE) 05/07/16 07:30 Urine Nitrate NEGATIVE (NEGATIVE) 05/07/16 07:30 Urine Bilirubin NEGATIVE (NEGATIVE) 05/07/16 07:30 Urine Urobilinogen 1.0 E.U./dL (0.2 - 1.0) 05/07/16 07:30 Ur Leukocyte Esterase NEGATIVE (NEGATIVE) 05/07/16 07:30 Urine RBC NONE SEEN /hpf (0-5) 05/07/16 07:30 Urine WBC 0-2 /hpf (0-5) 05/07/16 07:30 Ur Epithelial Cells RARE /lpf (FEW) 05/07/16 07:30 Urine Bacteria NONE SEEN /hpf (NONE SEEN) 05/07/16 07:30 - Physical Exam Vitals and I&O: Vital Signs Temp 97.8 F 05/14/16 04:00 Pulse 67 05/14/16 09:15 Resp 18 05/14/16 04:00 BP 156/76 05/14/16 09:15 Pulse Ox 97 05/14/16 04:00 Intake & Output 05/13/16 05/14/16 05/14/16 18:59 06:59 18:59 Intake Total 200 1100 Balance 200 1100 Intake: Intake, IV Amount 1100 D5-0.45NS w/20 mEq KCL 1, 1000 000 ml @ 100 mls/hr IV . Q10H [facility] Rx#:[id number] metroNIDAZOLE 500mg/NS 100 100mL 500 mg In 100 ml @ 100 mls/hr IV Q8HR [facility] Rx #:[id number] Oral 200 Other: # Voids 2 # Bowel Movements 2 Active Medications: Current Medications Acetaminophen/Hydrocodone Bitart ([place] 5mg/325mg) 1 tab PO Q6H PRN PRN Reason: Mild Abdominal Pain Stop: 07/08/16 08:20 Last Admin: 05/13/16 02:55 Dose: 1 tab Amlodipine Besylate (Norvasc) 10 mg PO DAILY [facility] Stop: 07/10/16 08:59 Last Admin: 05/13/16 09:02 Dose: 10 mg Clonidine HCl ([id number]-Mzq-1) 1 patch TD QTUE [facility] Stop: 07/06/16 08:59 Last Admin: 05/14/16 09:15 Dose: 1 patch Diphenhydramine HCl (Benadryl 50 Mg/Ml) 25 mg IVP Q6HR PRN PRN Reason: itching Stop: 07/06/16 19:40 Last Admin: 05/07/16 20:17 Dose: 25 mg Duloxetine HCl (Cymbalta) 30 mg PO DAILY AMANDA PRN Reason: Protocol Stop: 07/07/16 08:59 Last Admin: 05/13/16 09:03 Dose: 30 mg Hydromorphone HCl (Dilaudid) 1 mg IVP Q4HR PRN PRN Reason: Severe Abdominal Pain Stop: 07/12/16 08:23 Last Admin: 05/14/16 09:14 Dose: 1 mg Metronidazole (Flagyl) 500 mg in 100 mls @ 100 mls/hr IV Q8HR [facility] Stop: 07/06/16 12:59 Last Admin: 05/14/16 05:29 Dose: 100 mls/hr Potassium Chloride/Dextrose/Sod Cl (D5-0.45ns W/20 Meq Kcl) 1,000 mls @ 100 mls /hr IV .Q10H [facility] Stop: 07/12/16 08:29 Last Admin: 05/13/16 22:39 Dose: 100 mls/hr Lisinopril (Zestril) 10 mg PO DAILY [facility] Stop: 07/08/16 08:59 Last Admin: 05/13/16 09:03 Dose: 10 mg Morphine Sulfate (Morphine) 4 mg IVP Q4H PRN PRN Reason: Abdominal Pain Stop: 07/08/16 08:13 Last Admin: 05/13/16 09:04 Dose: 4 mg Ondansetron HCl (Zofran) 4 mg IV Q6H PRN PRN Reason: Nausea / Vomiting Stop: 07/06/16 00:49 Last Admin: 05/11/16 15:38 Dose: 4 mg Pantoprazole Sodium (Protonix) 40 mg IVP DAILY [facility] Stop: 07/06/16 08:59 Last Admin: 05/14/16 09:14 Dose: 40 mg Polyethylene Glycol (Miralax) 17 gm PO DAILY [facility] Stop: 07/11/16 08:59 Last Admin: 05/13/16 09:02 Dose: 17 gm Nutritional Asmnt/Malnutr-PDOC - Dietary Evaluation Malnutrition Findings (Please click <Entered> for more info): Nutritional Asmnt/Malnutrition Start: 05/12/16 10: 04 Text: Status: Complete Freq: Document 05/12/16 10:04 [facility] (Rec: 05/12/16 10:25 [facility] [id number]) Nutritional Asmnt/Malnutrition Patient General Information Nutritional Screening Diagnosis Diagnosis Abdominal pain, ileus vs enteritis, diverticulosis rule out diverticulitis Pertinent Medical Hx/Surgical Hx Appendectomy, cholecystectomy, HTN, GERD Subjective Information Pt is a 81-year-old male admitted with chief complaint of abdominal pain for 4 days. Pt was awake and alert during time of visit; pt is a good historian. Pt appears well nourished with no signs of muscle or fat depletion assessed to face, shoulders, and chest. Pt reports having bowel movements all night last night after taking laxatives. Pt reports to RD and Diet Clerks he has a very poor appetite and only drinks Boost provided. RD verified intake from breakfast tray; pt did not touch his breakfast. Food preferences obtained. Prior to admit, pt had a fair appetite and consumed small meals and Miralax throughout the day. Pt reports having "bad acid reflux". Pt is agreeable to snacks between meals here. RD weighed pt's wt via bedscale. GI Consult notes that pt lost 10-15# in the last 3-6 months. New wt measured indicate recent wt gain, however, current wt is likely inaccurate due to abdominal distention and bloatness. Current Diet Order/ Nutrition Support Soft/bland, Boost each meal Patient / S.O Can Pertinent Medications D5-0.45 ns (provides additional 170 kcals/day), Levaquin, Flagyl, Morphine, Zofran, Protonix, Miralax Pertinent Labs Reviewed Nutritional Hx/Data Height 1.85 m Height (Calculated Centimeters) 185.4 Current Weight (lbs) 81.193 kg Weight (Calculated Kilograms) 81.2 Weight (Calculated Grams) 79491.0 Usual body Weight (lbs) 160 % Usual Body Weight 112 [place] Body Weight 184 % [place] Body Weight 103 Recent Weight Change Yes Weight Status Approriate GI Symptoms GI Symptoms Nausea Vomitting Last BM Cultural/Ethnic/Sikh Belief No cultural preferences provided. Pt likes soups, half turkey sandwiches, cheese and crackers, apple sauce, strawberry and vanilla Boost/ Ensure. No acidic foods or tomatoes. Usual diet at home Regular, six small meals Skin Integrity/Comment: [place] 17. No skin breakdown noted. Current %PO Poor (25-49%) Estimated Nutritional Goals BEE in Kcals: Adj wt of IBW Calories/Kcals/Kg Based on UBW 72.7 kg with consideration of possible wt loss Kcals Calculated 4732-7213 kcals/day (30-35 kcals/kg) Protein: Adj wt of IBW Protein g/kg: Based on UBW 72.7 kg with consideration of possible wt loss Protein Calculated 73-95 gm/day (1-1.3 gm/kg) Fluid: ml 0577-3902 ml/day (30-35 ml/kg UBW) Nutritional Problem 2. Problem Problem Moderate protein-calorie malnutrition related to Etiology poor appetite and altered GI function as evidenced by Signs/Symptoms: pt has met less than 50% of estimated nutritional needs x 5 days with poor intake 0-25% and significant wt loss of 6.2 % in 3 months. 1. Problem Problem Inadequate oral intake related to Etiology poor appetite and altered GI function as evidenced by Signs/Symptoms: pt only consumes Boost at meals, meeting 50% of estimated caloric needs. Malnutrition Alert Food and Nutrition Intake (Severe) <50% est energy req 5days Interpretation of weight loss Non-Severe up to 7.5% in 3 month (mod) Is there a minimum of two criteria Yes selected? Query Text:Check all the applicable criteria. A minimum of two criteria are recommended for diagnosis of either severe or non-severe malnutrition. Malnutrition Related to Morbid Obesity Malnutrition related to morbid obesity No Intervention/Recommendation Recommendations by RD Protein supplementation Add supplement feedings Comments 1. Continue with current diet and encourage oral intake. FNS will provide snacks in between meals based on preferences to promote ora intake. Pt is agreeable with this intervention. 2. Recommend change supplement to Boost Plus TID (strawberry or vanilla) for additional nutrient intake. Expected Outcomes/Goals Expected Outcomes/Goals Have pt consume at least 75% of meals, snacks, and supplements for the next 2-3 days consistently. Physician Parameters for PEM Normal Weight % 90% - 110% (Normal) Body Mass Index (BMI) 18 - 24 (Mild) Serum Albumin (g/dl) 3.1 - 3.4 (Mild) 05/12/16 10:24 Dietitian Notes by Jess Aldrich Nutrition Note Initial Nutrition Assessment completed by Jess Aldrich on 05/12/16. Please refer to nutrition assessment under Patient Care tab of EMR. Nutrition Problems: 1) Moderate protein-calorie malnutrition related to poor appetite and altered GI function as evidenced by pt has met less than 50% of estimated nutritional needs x 5 days with poor intake 0-25% and significant wt loss of 6.2% in 3 months. 2) Inadequate oral intake related to poor appetite and altered GI function as evidenced by pt only consumes Boost at meals, meeting 50% of estimated caloric needs. Nutrition Recommendations: 1. Continue with current diet and encourage oral intake. FNS will provide snacks in between meals based on preferences to promote ora intake. Pt is agreeable with this intervention. 2. Recommend change supplement to Boost Plus TID (strawberry or vanilla) for additional nutrient intake. F/U in 2-3 days as High risk, 05/14-05/15 Initialized on 05/12/16 10:24 - END OF NOTE
--- NOTE | 2016-05-14 11:31 | General Progress Note ---
Subjective - Review of Systems Service Date: 05/14/13 Events since last encounter: discussed with Dr. Buitrago, from [facility], wants patient transferred to 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 - patient has been having pain of this leg and uses walker wants to proceed with surgery after explanation of angiogram findings were disclosed superior mesenteric artery is patent, no indication of vascular deficit to explain his abdominal pain wants diagnostic laparoscopy also message left with Jessica who has POA Objective - Results Result Diagrams: 05/10/16 05:28 05/13/16 05:30 Recent Labs: Laboratory Last Values WBC 7.1 Th/cmm (4.8-10.8) 05/10/16 05:28 RBC 4.10 Mil/cmm (3.80-5.80) 05/10/16 05:28 Hgb 12.8 gm/dL (12.6-17.4) 05/10/16 05:28 Hct 38.4 % (39.0-49.0) L 05/10/16 05:28 MCV 93.7 fl (80-99) 05/10/16 05:28 MCH 31.2 pg (27.0-31.0) H 05/10/16 05:28 MCHC Differential 33.3 pg (28.0-36.0) 05/10/16 05:28 RDW 12.0 % (11.5-20.0) 05/10/16 05:28 Plt Count 173 Th/cmm (150-400) 05/10/16 05:28 MPV 8.3 fl 05/10/16 05:28 Neutrophils % 68.5 % (40.0-80.0) 05/10/16 05:28 Lymphocytes % 21.5 % (20.0-50.0) 05/10/16 05:28 Monocytes % 8.8 % (2.0-10.0) 05/10/16 05:28 Eosinophils % 1.2 % (0.0-5.0) 05/10/16 05:28 Basophils % 0.0 % (0.0-2.0) 05/10/16 05:28 Sodium 138 mEq/L (136-145) 05/13/16 05:30 Potassium 3.7 mEq/L (3.5-5.1) 05/13/16 05:30 Chloride 106 mEq/L (98-107) 05/13/16 05:30 Carbon Dioxide 28.0 mEq/L (21.0-31.0) 05/13/16 05:30 Anion Gap 7.7 (7.0-16.0) 05/13/16 05:30 BUN 10 mg/dL (7-25) 05/13/16 05:30 Creatinine 1.1 mg/dL (0.7-1.3) 05/13/16 05:30 Est GFR ( Amer) TNP 05/13/16 05:30 Est GFR (Non-Af Amer) TNP 05/13/16 05:30 BUN/Creatinine Ratio 9.1 05/13/16 05:30 Glucose 103 mg/dL (70-105) 05/13/16 05:30 Whole Bld Lactic Acid 0.56 mmol/L (0.60-1.99) L 05/09/16 11:00 Calcium 8.8 mg/dL (8.6-10.3) 05/13/16 05:30 Total Bilirubin 0.6 mg/dL (0.3-1.0) 05/13/16 05:30 AST 16 U/L (13-39) 05/13/16 05:30 ALT 14 U/L (7-52) 05/13/16 05:30 Alkaline Phosphatase 30 U/L (34-104) L 05/13/16 05:30 Total Protein 5.9 gm/dL (6.0-8.3) L 05/13/16 05:30 Albumin 3.2 gm/dL (4.2-5.5) L 05/13/16 05:30 Globulin 2.7 gm/dL 05/13/16 05:30 Albumin/Globulin Ratio 1.2 (1.0-1.8) 05/13/16 05:30 Amylase 55 U/L (29-103) 05/06/16 21:41 Lipase 14 U/L (11-82) 05/06/16 21:41 Urine Source CLEAN C 05/07/16 07:30 Urine Color YELLOW 05/07/16 07:30 Urine Clarity SL. CLOUDY (CLEAR) 05/07/16 07:30 Urine pH 6.0 05/07/16 07:30 Ur Specific [place] 1.015 (1.005-1.030) 05/07/16 07:30 Urine Protein TRACE mg/dL (NEGATIVE) 05/07/16 07:30 Urine Glucose (UA) NEGATIVE mg/dL (NEGATIVE) 05/07/16 07:30 Urine Ketones NEGATIVE mg/dL (NEGATIVE) 05/07/16 07:30 Urine Blood NEGATIVE (NEGATIVE) 05/07/16 07:30 Urine Nitrate NEGATIVE (NEGATIVE) 05/07/16 07:30 Urine Bilirubin NEGATIVE (NEGATIVE) 05/07/16 07:30 Urine Urobilinogen 1.0 E.U./dL (0.2 - 1.0) 05/07/16 07:30 Ur Leukocyte Esterase NEGATIVE (NEGATIVE) 05/07/16 07:30 Urine RBC NONE SEEN /hpf (0-5) 05/07/16 07:30 Urine WBC 0-2 /hpf (0-5) 05/07/16 07:30 Ur Epithelial Cells RARE /lpf (FEW) 05/07/16 07:30 Urine Bacteria NONE SEEN /hpf (NONE SEEN) 05/07/16 07:30 - Physical Exam Vitals and I&O: Vital Signs Temp 97.8 F 05/14/16 04:00 Pulse 67 05/14/16 09:15 Resp 18 05/14/16 04:00 BP 156/76 05/14/16 09:15 Pulse Ox 97 05/14/16 04:00 Intake & Output 05/13/16 05/14/16 05/14/16 18:59 06:59 18:59 Intake Total 200 1100 Balance 200 1100 Intake: Intake, IV Amount 1100 D5-0.45NS w/20 mEq KCL 1, 1000 000 ml @ 100 mls/hr IV . Q10H [facility] Rx#:[id number] metroNIDAZOLE 500mg/NS 100 100mL 500 mg In 100 ml @ 100 mls/hr IV Q8HR [facility] Rx #:[id number] Oral 200 Other: # Voids 2 # Bowel Movements 2 Active Medications: Current Medications Acetaminophen/Hydrocodone Bitart ([place] 5mg/325mg) 1 tab PO Q6H PRN PRN Reason: Mild Abdominal Pain Stop: 07/08/16 08:20 Last Admin: 05/13/16 02:55 Dose: 1 tab Amlodipine Besylate (Norvasc) 10 mg PO DAILY [facility] Stop: 07/10/16 08:59 Last Admin: 05/13/16 09:02 Dose: 10 mg Clonidine HCl (Wgstknym-Eld-5) 1 patch TD QTUE [facility] Stop: 07/06/16 08:59 Last Admin: 05/14/16 09:15 Dose: 1 patch Diphenhydramine HCl (Benadryl 50 Mg/Ml) 25 mg IVP Q6HR PRN PRN Reason: itching Stop: 07/06/16 19:40 Last Admin: 05/07/16 20:17 Dose: 25 mg Duloxetine HCl (Cymbalta) 30 mg PO DAILY [facility] PRN Reason: Protocol Stop: 07/07/16 08:59 Last Admin: 05/13/16 09:03 Dose: 30 mg Hydromorphone HCl (Dilaudid) 1 mg IVP Q4HR PRN PRN Reason: Severe Abdominal Pain Stop: 07/12/16 08:23 Last Admin: 05/14/16 09:14 Dose: 1 mg Metronidazole (Flagyl) 500 mg in 100 mls @ 100 mls/hr IV Q8HR [facility] Stop: 07/06/16 12:59 Last Admin: 05/14/16 05:29 Dose: 100 mls/hr Potassium Chloride/Dextrose/Sod Cl (D5-0.45ns W/20 Meq Kcl) 1,000 mls @ 100 mls /hr IV .Q10H [facility] Stop: 07/12/16 08:29 Last Admin: 05/13/16 22:39 Dose: 100 mls/hr Lisinopril (Zestril) 10 mg PO DAILY [facility] Stop: 07/08/16 08:59 Last Admin: 05/13/16 09:03 Dose: 10 mg Morphine Sulfate (Morphine) 4 mg IVP Q4H PRN PRN Reason: Abdominal Pain Stop: 07/08/16 08:13 Last Admin: 05/13/16 09:04 Dose: 4 mg Ondansetron HCl (Zofran) 4 mg IV Q6H PRN PRN Reason: Nausea / Vomiting Stop: 07/06/16 00:49 Last Admin: 05/11/16 15:38 Dose: 4 mg Pantoprazole Sodium (Protonix) 40 mg IVP DAILY [facility] Stop: 07/06/16 08:59 Last Admin: 05/14/16 09:14 Dose: 40 mg Polyethylene Glycol (Miralax) 17 gm PO DAILY [facility] Stop: 07/11/16 08:59 Last Admin: 05/13/16 09:02 Dose: 17 gm Nutritional Asmnt/Malnutr-PDOC - Dietary Evaluation Malnutrition Findings (Please click <Entered> for more info): Nutritional Asmnt/Malnutrition Start: 05/12/16 10: 04 Text: Status: Complete Freq: Document 05/12/16 10:04 [facility] (Rec: 05/12/16 10:25 [facility] [id number]) Nutritional Asmnt/Malnutrition Patient General Information Nutritional Screening Diagnosis Diagnosis Abdominal pain, ileus vs enteritis, diverticulosis rule out diverticulitis Pertinent Medical Hx/Surgical Hx Appendectomy, cholecystectomy, HTN, GERD Subjective Information Pt is a 81-year-old male admitted with chief complaint of abdominal pain for 4 days. Pt was awake and alert during time of visit; pt is a good historian. Pt appears well nourished with no signs of muscle or fat depletion assessed to face, shoulders, and chest. Pt reports having bowel movements all night last night after taking laxatives. Pt reports to RD and Diet Clerks he has a very poor appetite and only drinks Boost provided. RD verified intake from breakfast tray; pt did not touch his breakfast. Food preferences obtained. Prior to admit, pt had a fair appetite and consumed small meals and Miralax throughout the day. Pt reports having "bad acid reflux". Pt is agreeable to snacks between meals here. RD weighed pt's wt via bedscale. GI Consult notes that pt lost 10-15# in the last 3-6 months. New wt measured indicate recent wt gain, however, current wt is likely inaccurate due to abdominal distention and bloatness. Current Diet Order/ Nutrition Support Soft/bland, Boost each meal Patient / S.O Can Pertinent Medications D5-0.45 ns (provides additional 170 kcals/day), Levaquin, Flagyl, Morphine, Zofran, Protonix, Miralax Pertinent Labs Reviewed Nutritional Hx/Data Height 1.85 m Height (Calculated Centimeters) 185.4 Current Weight (lbs) 81.193 kg Weight (Calculated Kilograms) 81.2 Weight (Calculated Grams) 73673.0 Usual body Weight (lbs) 160 % Usual Body Weight 112 [place] Body Weight 184 % [place] Body Weight 103 Recent Weight Change Yes Weight Status Approriate GI Symptoms GI Symptoms Nausea Vomitting Last BM Cultural/Ethnic/Buddhism Belief No cultural preferences provided. Pt likes soups, half turkey sandwiches, cheese and crackers, apple sauce, strawberry and vanilla Boost/ Ensure. No acidic foods or tomatoes. Usual diet at home Regular, six small meals Skin Integrity/Comment: Loki 17. No skin breakdown noted. Current %PO Poor (25-49%) Estimated Nutritional Goals BEE in Kcals: Adj wt of IBW Calories/Kcals/Kg Based on UBW 72.7 kg with consideration of possible wt loss Kcals Calculated 0144-3595 kcals/day (30-35 kcals/kg) Protein: Adj wt of IBW Protein g/kg: Based on UBW 72.7 kg with consideration of possible wt loss Protein Calculated 73-95 gm/day (1-1.3 gm/kg) Fluid: ml 9344-9623 ml/day (30-35 ml/kg UBW) Nutritional Problem 2. Problem Problem Moderate protein-calorie malnutrition related to Etiology poor appetite and altered GI function as evidenced by Signs/Symptoms: pt has met less than 50% of estimated nutritional needs x 5 days with poor intake 0-25% and significant wt loss of 6.2 % in 3 months. 1. Problem Problem Inadequate oral intake related to Etiology poor appetite and altered GI function as evidenced by Signs/Symptoms: pt only consumes Boost at meals, meeting 50% of estimated caloric needs. Malnutrition Alert Food and Nutrition Intake (Severe) <50% est energy req 5days Interpretation of weight loss Non-Severe up to 7.5% in 3 month (mod) Is there a minimum of two criteria Yes selected? Query Text:Check all the applicable criteria. A minimum of two criteria are recommended for diagnosis of either severe or non-severe malnutrition. Malnutrition Related to Morbid Obesity Malnutrition related to morbid obesity No Intervention/Recommendation Recommendations by RD Protein supplementation Add supplement feedings Comments 1. Continue with current diet and encourage oral intake. FNS will provide snacks in between meals based on preferences to promote ora intake. Pt is agreeable with this intervention. 2. Recommend change supplement to Boost Plus TID (strawberry or vanilla) for additional nutrient intake. Expected Outcomes/Goals Expected Outcomes/Goals Have pt consume at least 75% of meals, snacks, and supplements for the next 2-3 days consistently. Physician Parameters for PEM Normal Weight % 90% - 110% (Normal) Body Mass Index (BMI) 18 - 24 (Mild) Serum Albumin (g/dl) 3.1 - 3.4 (Mild) 05/12/16 10:24 Dietitian Notes by Jess Aldrich Nutrition Note Initial Nutrition Assessment completed by Jess Aldrich on 05/12/16. Please refer to nutrition assessment under Patient Care tab of EMR. Nutrition Problems: 1) Moderate protein-calorie malnutrition related to poor appetite and altered GI function as evidenced by pt has met less than 50% of estimated nutritional needs x 5 days with poor intake 0-25% and significant wt loss of 6.2% in 3 months. 2) Inadequate oral intake related to poor appetite and altered GI function as evidenced by pt only consumes Boost at meals, meeting 50% of estimated caloric needs. Nutrition Recommendations: 1. Continue with current diet and encourage oral intake. FNS will provide snacks in between meals based on preferences to promote ora intake. Pt is agreeable with this intervention. 2. Recommend change supplement to Boost Plus TID (strawberry or vanilla) for additional nutrient intake. F/U in 2-3 days as High risk, 05/14-05/15 Initialized on 05/12/16 10:24 - END OF NOTE
[2016-05-14] MEDS: POLYETHYLENE GLYCOL 3350 17 GM PACK PO SCH (11:42)
[2016-05-14] MEDS: D5-0.45NS w/20 mEq KCL 1,000 ML IV SCH (15:00)
[2016-05-15] MEDS: HYDROmorphone 1 mg/mL 1mL Syr IVP PRN ×4 (02:10→17:04)
[2016-05-15] MEDS: metroNIDAZOLE 500mg/NS 100mL 500 MG/100 ML BAG IV SCH (05:38)
[2016-05-15] MEDS: POLYETHYLENE GLYCOL 3350 17 GM PACK PO SCH (08:40)
[2016-05-15] MEDS ORDERED: metroNIDAZOLE 500mg/NS 100mL 500 MG/100 ML BAG IV SCH (13:00)
--- NOTE | 2016-06-03 21:05 | Discharge Summary ---
PRELIMINARY DIAGNOSES: 1. Abdominal pain. 2. Ileus versus enteritis. 3. Diverticulosis, rule out diverticulitis. 4. Hypertension. 5. Status post appendectomy. 6. Status post cholecystectomy. 7. Gastroesophageal reflux disease. DISCHARGE DIAGNOSES: 1. Abdominal pain due to occlusion of the right common iliac artery, noted on CTA of the abdomen. 2. Ileus. 3. Diverticulosis. 4. Hypertension. 5. Status post appendectomy. 6. Status post cholecystectomy. 7. Gastroesophageal reflux disease. BRIEF HISTORY OF PRESENT ILLNESS: This is a 81-year-old male who presented to [facility] ER for acute abdominal pain for the past 5 days. He described the pain to be sharp, constant, nonradiating, 10/10, generalized abdominal pain. He had some nausea and vomiting. Associated with this, he states that he had not had a bowel movement since the previous Friday which is approximately a week from the day of his admission. The patient has a previous history of appendectomy, cholecystectomy, and hypertension. He also has a history of gastroesophageal reflux disease. While in the ER, his initial lab work revealed a white count normal at 8.4, hemoglobin 14.9, hematocrit 44.8, and platelets 229,000. Chem-7: Sodium was 135, potassium 4, chloride 101, bicarbonate 23, BUN 19, creatinine 1.2, and glucose was 107. Amylase was normal at 55. Lipase was normal at 14. HOSPITAL COURSE: The patient was seen and evaluated by General Surgery as well as GI. The patient had undergone a CTA of his abdomen, which revealed occlusion to the right common iliac artery. The patient was subsequently transferred [facility] [place] for vascular surgery. JOB# [id number]
== END 2016-05-15 18:30 | disposition short-term general hospital (02) | DRG 300 ==
LOC: ER 21:21 → MSI 05-07 00:20
PROVIDERS: ADMIT Family Medicine; ATTEND Family Medicine
DX: I74.5 Embolism and thrombosis of iliac artery (principal); E44.0 Moderate protein-calorie malnutrition; K56.7 Ileus, unspecified; I10 Essential (primary) hypertension; K57.90 Diverticulosis of intestine, part unspecified, without perforation or abscess without bleeding; K21.9 Gastro-esophageal reflux disease without esophagitis; G89.29 Other chronic pain; F11.90 Opioid use, unspecified, uncomplicated; R11.2 Nausea with vomiting, unspecified; Z68.23 Body mass index [BMI] 23.0-23.9, adult; Z90.49 Acquired absence of other specified parts of digestive tract
CPT/HCPCS: 36415-UA; 74000-TC; 74250-TC; 80048-TC; 80053-TC; 81001-TC; 82150-TC; 82565-TC; 83605; 83690-TC; 85025-TC; 90784; 90799; 93005; 96374; 96375; C9113; J1170; J1200; J1956; J2270; J2405; J2765; J7040; J7070; Q9967; Z7610